=== PATIENT | male | born 1975 | race Caucasian/White ===

== ENCOUNTER → 2017-05-27 | Outpatient (CLI) | payer OTHER ==
[~2017-05-27] MED LIST: HYDACE5325 PO
== END | disposition home or self-care (01) ==
LOC: PLD 08:02 → LAB SHORT 08:02
DX: R31.0 Gross hematuria (principal)
CPT/HCPCS: 88305

== ENCOUNTER 2024-03-23 09:17 | Day surgery (SDC) | payer OTHER ==
[~2024-03-23] VITALS: Ht 182.9 cm; Wt 104.0 kg
[2024-03-23] VITALS (11 sets, daily range): BP systolic 145–198; BP diastolic 80–143
[~2024-03-23 09:17] MED LIST changes: +FURO20 PO
[2024-03-23] MEDS ORDERED: Verapamil HCL 2.5 MG/ML 2ML Injection ONE (09:29)
[2024-03-23] MEDS ORDERED: NS 250 ML IV ONE (09:29)
[2024-03-23] MEDS ORDERED: NS 1,000 ML IV ONE ×2 (09:29→10:32)
[2024-03-23] MEDS ORDERED: Heparin Sodium 1000 Units/ML 10ML MDV ONE ×2 (09:29→10:32)
[2024-03-23] MEDS ORDERED: Nitroglycerin 2 MG/20 ML BTL ONE (09:30)
[2024-03-23] MEDS ORDERED: FentaNYL Citrate 50 MCG/ML 2 ML Injection ONE (10:32)
[2024-03-23] MEDS ORDERED: Midazolam HCl 1MG / ML 2ML Vial ONE (10:32)
[2024-03-23] MEDS ORDERED: HydrALAZINE HCl 20 MG / ML 1ML Vial ONE ×2 (11:10→11:22)
[2024-03-23] MEDS ORDERED: Furosemide 10 MG / ML 2ML Vial ONE (11:37)
--- NOTE | 2024-03-23 12:05 | NUR ---
ASSUMED CARE OF PT POST PROCEDURE. PT AWAKE AND CONVERSING APPROPRIATELY; DENIES CHEST PAIN. MONITOR SR 80'S, B/P 185/101, SPO2 91% RA. R RADIAL SITE NO SWELLING/HEMATOMA, TR BAND IN PLACE; RUE POSITIVE PLEUTH POST TR BAND PLACEMENT. R AC ([facility]) SITE NO SWELLING/HEMATOMA, CLOTH DOT DRSG INTACT.
--- NOTE | 2024-03-23 12:15 | NUR ---
PT AMB TO BATHROOM, GAIT STEADY; SITE UNCHANGED WITH ACTIVITY.
--- NOTE | 2024-03-23 12:23 | NUR ---
REPORT TO JOSE ARMANDO BOURNE; ALL QUESTIONS ANSWERED.
--- NOTE | 2024-03-23 12:32 | NUR ---
PT SITTING UP IN RECLINER DRINKING PEPSI. RIGHT RADIAL TR BAND SITE SOFT NON-TENDER WITH NO HEMATOMA, NO PULSATILE BLEEDING AND RIGHT WRIST BOARD IN PLACE. RIGHT AC VENOUS SITE SOFT NON-TENDER WITH NO HEMATOMA, NO BLEEDING AND POLYMEM OVER SITE. PT DENIES CHEST PAIN. CALL LIGHT IN REACH.
[2024-03-23] MEDS ORDERED: Carvedilol12.5 MG PO (12:41)
[2024-03-23] MEDS ORDERED: FURO40 PO (12:41)
[2024-03-23] MEDS ORDERED: LOSA50 PO (12:42)
--- NOTE | 2024-03-23 13:23 | NUR ---
NO CHANGES TO R RAD TR BAND SITE OR R AC SITE.
--- NOTE | 2024-03-23 13:49 | NUR ---
12CC OF AIR REMOVED OUT OF NOW DEFLATED RIGHT TR BAND OVER 15 MIN. R RAD SITE SOFT NON-TENDER WITH NO HEMATOMA, NO PULSATILE BLEEDING AND RIGHT WRIST BOARD IN PLACE. DISCHARGE INSTRUCTIONS REVIEWED ALL QUESTIONS ANSWERED.
--- NOTE | 2024-03-23 13:53 | NUR ---
NO CHANGES TO DEFLATED R TR BAND SITE.
--- NOTE | 2024-03-23 14:37 | NUR ---
DEFLATED RIGHT TR BAND REMOVED AND POLYMEM PLACED OVER R RAD SITE WITH RIGHT WRIST BOARD IN PLACE; R RAD SITE STILL SOFT NON-TENDER WITH NO HEMATOMA, NO PULSATILE BLEEDING AND WRIST BOARD IN PLACE. R AC SITE NO CHANGES. 20G IV DISCONTINUED FROM LEFT AC WITH INTACT CANNULA. PT ESCORTED OUT VIA WHEELCHAIR ESCORT.
== END 2024-03-23 14:35 | disposition home or self-care (01) ==
LOC: MHTC 09:17 → ORSCMMR 09:18 → MHTC 09:25
DX: I27.20 Pulmonary hypertension, unspecified (principal); R06.02 Shortness of breath; R94.31 Abnormal electrocardiogram [ECG] [EKG]; I10 Essential (primary) hypertension; Z87.891 Personal history of nicotine dependence; Z91.048 Other nonmedicinal substance allergy status; Z79.899 Other long term (current) drug therapy
CPT/HCPCS: 36415; 76937; 80053; 83880; 85025; 85610; 93456; 99152; C1769; C1887; C1894; J0360; J1644; J1940; J2250; J3010; J7030; J7050; Q9967